=== PATIENT | female | born 1945 | race Asian ===

== ENCOUNTER 2019-02-10 11:25 | Inpatient (IN) | payer MEDICARE, OTHER ==
[~2019-02-10] VITALS: Ht 160 cm; Wt 64.0 kg
[2019-02-10 12:30] VITALS: BP 117/60; PULSE 80; RESP 18
[2019-02-10] MEDS ORDERED: METHOCARBAMOL 500 MG TAB PO PRN (12:30)
[2019-02-10] MEDS ORDERED: LACTULOSE 30ML CUP PO PRN (12:30)
[2019-02-10] MEDS ORDERED: BISACODYL 10 MG SUPP PR PRN (12:30)
[2019-02-10] MEDS ORDERED: PENDING SANTYL ORDER FOR WOUND CARE XX PRN (12:30)
[2019-02-10 12:50] VITALS: Ht 160 cm; Wt 64.0 kg
[2019-02-10] MEDS ORDERED: CALCIUM CARBONATE 1.25 GM TAB PO SCH (13:00)
--- NOTE | 2019-02-10 15:05 | CONS ---
DATE OF ADMISSION: 02/10/2019 DATE OF CONSULTATION: 02/10/2019 TYPE OF CONSULTATION: Rehabilitation post-admission physician evaluation. REHABILITATION IMPAIRMENT CATEGORY: Other orthopedic injury with severe osteoarthritis, status post right total hip arthroplasty. ACTIVE COMORBIDITIES: 1. Lumbar spinal stenosis and radiculopathy, status post epidurals. 2. Acute pain syndrome. 3. Anxiety. 4. History of breast cancer with lumpectomy. 5. Gastroesophageal reflux disease. 6. Hypotension. 7. Impairments in self-care and mobility. HISTORY OF PRESENT ILLNESS: The patient is a javier 73-year-old female with a history of lumbar radiculopathy and low back pain, breast cancer and lumpectomy, who had noted continued right groin pain despite conservative measures. It was thought that she initially the pain was secondary to the lumbar spinal stenosis. However, with further imaging the patient was noted to have severe osteoarthritis with possible avascular necrosis. The patient did undergo right total hip arthroplasty on 02/08/2019 at [facility]. Her hospital course was notable for anemia, hypotension, and significant impairments in self-care and mobility as compared to baseline. The patient has been cleared to transfer to the rehabilitation unit for comprehensive interdisciplinary rehab care. FUNCTIONAL HISTORY: Prior to recent events, she was independent in self-care tasks and mobility. Currently, patient requires minimal to moderate assist for self-care and mobility tasks. I have reviewed the preadmission screen and patient's current functional status is consistent with the preadmission screen. 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 She lives with her . She does hope to return home upon discharge. PAST MEDICAL HISTORY: 1. History of breast cancer with status post lumpectomy. 2. Osteoarthritis. 3. Anxiety. 4. Gastroesophageal reflux disease. CURRENT MEDICATIONS: 1. Tylenol p.r.n. 2. Aspirin 325 p.o. b.i.d. 3. Calcium carbonate 500 mg p.o. daily. 4. Vitamin D. 5. Colace 100 mg p.o. b.i.d. 6. Multivitamin 1 tab p.o. daily. 7. Protonix 40 mg p.o. daily. 8. Maynard p.r.n. 9. Xanax p.r.n. PHYSICAL EXAMINATION: VITAL SIGNS: She is currently afebrile with stable vital signs. HEENT: Extraocular motions are intact. Oropharynx clear. NECK: Supple. LUNGS: Clear anteriorly. CARDIAC: S1, S2. ABDOMEN: Soft, nontender, positive bowel sounds. NEUROLOGIC: She is awake and alert and oriented x4. She can follow simple 1- step commands. She demonstrates good strength in bilateral upper extremity and the left lower extremity. Dorsiflexion and plantar flexion intact on the right. PLAN: The patient has been admitted for comprehensive interdisciplinary acute rehab and is anticipated to tolerate 3 hours of daily therapy in divided doses for at least 5/7 days a week. The treatment plan will include: 1. Physical therapy to focus on bed mobility, transfers, and household ambulation with the goal of having the patient reach a modified independent level. The goal is also to have patient be able to do stair ascension and descension at a standby assist level. 2. Occupational therapy to focus on hygiene, grooming, dressing, bathing, and toileting activities with the goal of having the patient reach a standby assist level. 3. Rehabilitation nursing for carryover of therapeutic interventions, the goal of continent of bowel and bladder, and the goal of pain adequately managed on oral medications. Will begin bowel program as it has been a few days since she had a bowel movement. 4. Mysql Database Administrator evaluation. The patient has not had a significant appetite since surgery. Will have floor hand review patient preferences to encourage po intake. Will also add dietary supplement, Boost. REHABILITATION BARRIER: Hypotension. INTERVENTION FOR BARRIER: Encourage p.o. intake, abdominal binder and MILE hose for out of bed. ESTIMATED LENGTH OF STAY: 10 days. DISPOSITION GOAL: Home with family. I acknowledge that I performed a full physical examination on this patient within 24 hours of admission to the rehabilitation unit. I believe the patient is a good candidate for comprehensive interdisciplinary rehab care and is anticipated to make reasonable goals in a reasonable period of time as outlined above. Patient is highly motivated and agreeable with the treatment plan. Dictated By: ILANA FORRESTER/MEHUL Conf#: [id number] DID#: [id number] MTDD
[2019-02-10] MEDS: ACETAMINOPHEN 325 MG TAB PO PRN (19:38)
[2019-02-10 20:11] VITALS: BP 150/75; PULSE 91; RESP 16
[2019-02-10] MEDS: SENNA TAB PO SCH (21:00)
[2019-02-10] MEDS: HYDROCODONE/APAP (5/325) TAB PO PRN (22:15)
[2019-02-10] MEDS: DOCUSATE SODIUM 100 MG CAP PO SCH (22:16)
[2019-02-10] MEDS: ALPRAZOLAM 1 MG TAB PO PRN (23:28)
[2019-02-11 02:00] VITALS: BP 147/78; PULSE 79; RESP 18
[2019-02-11] MEDS: PANTOPRAZOLE (EC) 40 MG TAB PO SCH (07:21)
[2019-02-11 08:30] VITALS: BP 100/58; PULSE 96; RESP 18
--- NOTE | 2019-02-11 08:51 | PN ---
Date/Time of Note Date/Time of Note DATE: 02/11/19 TIME: 08:49 Objective Vital Signs Date Temp Pulse Resp B/P (MAP) Pulse Ox O2 O2 Flow FiO2 Time Delivery Rate 02/11/19 98.1 79 18 147/78 98 Room Air 02:00 (101) Intake and Output 02/10/19 02/10/19 02/11/19 1515:00 23:00 07:00 IntakeIntake Total 500 ml 200 ml BalanceBalance 500 ml 200 ml Exam min transfer min ambulation pulm-cta abd-soft Results/Medications Result Diagram: [birth year] Results 24 hrs Laboratory Tests Test 02/10/19 13:25 02/11/19 06:51 Urine Color YELLOW Urine Clarity CLEAR Urine pH 7.0 Urine Specific [place] 1.014 Urine Ketones NEGATIVE Urine Nitrite NEGATIVE Urine Bilirubin NEGATIVE Urine Urobilinogen NEGATIVE Urine Leukocyte Esterase NEGATIVE Urine Hemoglobin NEGATIVE Urine Glucose NEGATIVE Urine Total Protein NEGATIVE White Blood Count 12.2 H Red Blood Count 3.31 L Hemoglobin 10.2 L Hematocrit 31.3 L Mean Corpuscular Volume 94.6 Mean Corpuscular Hemoglobin 30.8 Mean Corpuscular Hemoglobin Concent 32.6 Red Cell Distribution Width 13.3 Platelet Count 161 Mean Platelet Volume 10.4 Immature Granulocytes % 0.500 H Neutrophils % 76.5 Lymphocytes % 16.4 Monocytes % 4.7 Eosinophils % 1.7 Basophils % 0.2 Nucleated Red Blood Cells % 0.0 Immature Granulocytes # 0.060 H Neutrophils # 9.3 H Lymphocytes # 2.0 Monocytes # 0.6 Eosinophils # 0.2 Basophils # 0.0 Nucleated Red Blood Cells # 0.0 Sodium Level 140 Potassium Level 4.5 Chloride Level 108 Carbon Dioxide Level 26 Anion Gap 6 Blood Urea Nitrogen 13 Creatinine 0.67 Est Glomerular Filtrat Rate mL/min Glucose Level 98 Calcium Level 8.6 Total Bilirubin 0.6 Direct Bilirubin 0.00 Indirect Bilirubin 0.6 Aspartate Amino Transf (AST/SGOT) 36 Alanine Aminotransferase (ALT/SGPT) 23 Alkaline Phosphatase 74 Total Protein 5.5 L Albumin 2.8 L Globulin 2.70 Albumin/Globulin Ratio 1.03 Medications Current Medications Docusate Sodium (Colace) 100 mg BID PO Last administered on 02/10/19at 22:16; Admin Dose 100 MG; Start 02/10/19 at 21:00 Senna (Senokot) 1 tab HS PO ; Start 02/10/19 at 21:00 Magnesium Hydroxide (Milk Of Mag) 30 ml BID PRN PO CONSTIPATION; Start 02/10/19 at 12:30 Lactulose (Enulose) 20 gm DAILY PRN PO CONSTIPATION; Start 02/10/19 at 12:30 Bisacodyl (Dulcolax Supp) 10 mg DAILY PRN [place] CONSTIPATION; Start 02/10/19 at 12:30 Acetaminophen (Tylenol Tab) 650 mg Q4H PRN PO PAIN Last administered on 02/10/19at 19:38; Admin Dose 650 MG; Start 02/10/19 at 12:30 Miscellaneous Information (Pending [facility] Order For Wound Care) This patient jane... PRN PRN XX WOUND CARE; Start 02/10/19 at 12:30 Aspirin (Ecotrin) 325 mg DAILY PO ; Start 02/11/19 at 09:00 Acetaminophen/ Hydrocodone Bitart ([place] (5/325)) 1 tab Q4H PRN PO MODERATE to sev pain 4-10 Last administered on 02/10/19at 22:15; Admin Dose 1 TAB; Start 02/10/19 at 12:30 Methocarbamol (Robaxin) 500 mg QID PRN PO muscle spasm; Start 02/10/19 at 12:30 Multivitamins Therapeutic (Theragran) 1 tab DAILY PO ; Start 02/11/19 at 09:00 Pantoprazole (Protonix Tab) 40 mg AC BREAKFAST PO Last administered on 02/11/19at 07:21; Admin Dose 40 MG; Start 02/11/19 at 07:05 Cholecalciferol (Vitamin D) 400 units DAILY PO ; Start 02/11/19 at 09:00 Alprazolam (Xanax) 2 mg HS PRN PO anxiety Last administered on 02/10/19at 23:28; Admin Dose 1 MG; Start 02/10/19 at 12:30 Calcium Carbonate (Oyster Shell Calcium) 1.25 gm DAILY PO ; Start 02/11/19 at 09:00 Assessment/Plan Additional Assessment/Plan Rehab- Other orthopedic injury with severe osteoarthritis, status post right total hip arthroplasty; Lumbar spinal stenosis and radiculopathy, status post epidurals. Patient tolerating rehab program Acute pain syndrome- continue current medications GI- results with bowel program.; h.o. GERD Anxiety- comfortable, adjusting well to interdisciplinary rehab program. Motivated for activities History of breast cancer with lumpectomy. Hypotension. ILANA LOZOYA MD Feb 11, 2019 08:51
[2019-02-11] MEDS: ASPIRIN (EC) 325 MG TAB PO SCH (08:59)
[2019-02-11] MEDS: HYDROCODONE/APAP (5/325) TAB PO PRN ×2 (08:59→23:07)
[2019-02-11] MEDS: DOCUSATE SODIUM 100 MG CAP PO SCH ×2 (09:01→21:00)
[2019-02-11] MEDS: CHOLECALCIFEROL 400 UNITS TAB PO SCH (09:01)
[2019-02-11] MEDS: CALCIUM CARBONATE 1.25 GM TAB PO SCH (09:01)
[2019-02-11] MEDS: MULTIVITAMINS THERAPEUTIC TAB PO SCH (09:01)
[2019-02-11 14:00] VITALS: BP 118/68; RESP 18
[2019-02-11] MEDS: ACETAMINOPHEN 325 MG TAB PO PRN (17:43)
[2019-02-11 20:00] VITALS: BP 124/72; PULSE 90; RESP 18
[2019-02-11] MEDS: SENNA TAB PO SCH (21:00)
[2019-02-11] MEDS: ALPRAZOLAM 1 MG TAB PO PRN (23:30)
[2019-02-12 02:00] VITALS: BP 118/69; PULSE 81; RESP 18
[2019-02-12] MEDS: ACETAMINOPHEN 325 MG TAB PO SCH ×6 (04:00→20:00)
[2019-02-12 08:05] VITALS: BP 106/65; PULSE 90; RESP 18
[2019-02-12] MEDS: PANTOPRAZOLE (EC) 40 MG TAB PO SCH (08:40)
[2019-02-12] MEDS: MULTIVITAMINS THERAPEUTIC TAB PO SCH (08:41)
[2019-02-12] MEDS: CHOLECALCIFEROL 400 UNITS TAB PO SCH (08:41)
[2019-02-12] MEDS: DOCUSATE SODIUM 100 MG CAP PO SCH ×2 (08:41→21:00)
[2019-02-12] MEDS: HYDROCODONE/APAP (5/325) TAB PO PRN ×2 (08:41→20:54)
[2019-02-12] MEDS: ASPIRIN (EC) 325 MG TAB PO SCH (08:41)
[2019-02-12] MEDS: CALCIUM CARBONATE 1.25 GM TAB PO SCH (08:41)
[2019-02-12 09:12] VITALS: BP 119/59; PULSE 85; RESP 18
[2019-02-12 14:56] VITALS: BP 107/56; PULSE 91; RESP 17
[2019-02-12 20:16] VITALS: BP 112/68; PULSE 97; RESP 19
[2019-02-12] MEDS: SENNA TAB PO SCH (21:00)
[2019-02-13] MEDS: ACETAMINOPHEN 325 MG TAB PO SCH ×6 (04:00→21:58)
[2019-02-13 07:00] VITALS: BP 126/59; PULSE 97
[2019-02-13] MEDS: CALCIUM CARBONATE 1.25 GM TAB PO SCH (08:20)
[2019-02-13] MEDS: PANTOPRAZOLE (EC) 40 MG TAB PO SCH (08:20)
[2019-02-13] MEDS: ASPIRIN (EC) 325 MG TAB PO SCH (08:20)
[2019-02-13] MEDS: MULTIVITAMINS THERAPEUTIC TAB PO SCH (08:20)
[2019-02-13] MEDS: CHOLECALCIFEROL 400 UNITS TAB PO SCH (08:21)
[2019-02-13] MEDS: DOCUSATE SODIUM 100 MG CAP PO SCH ×2 (08:21→21:00)
--- NOTE | 2019-02-13 09:27 | PN ---
Date/Time of Note Date/Time of Note DATE: 02/13/19 TIME: 09:26 Subjective Motivated Objective Vital Signs Date Temp Pulse Resp B/P (MAP) Pulse Ox O2 O2 Flow FiO2 Time Delivery Rate 02/13/19 97.9 97 126/59 96 Room Air 07:00 (81) 02/12/19 20:16 Intake and Output 02/12/19 02/12/19 02/13/19 1515:00 23:00 07:00 IntakeIntake Total 120 ml OutputOutput Total 300 ml BalanceBalance 120 ml -300 ml Exam cga transfer cga ambulation Results/Medications Result Diagram: 02/11/19 0651 02/11/19 0651 Medications Current Medications Docusate Sodium (Colace) 100 mg BID PO Last administered on 02/13/19 08:21; Admin Dose 100 MG; Start 02/10/19 at 21:00 Senna (Senokot) 1 tab HS PO ; Start 02/10/19 at 21:00 Magnesium Hydroxide (Milk Of Mag) 30 ml BID PRN PO CONSTIPATION; Start 02/10/19 at 12:30 Lactulose (Enulose) 20 gm DAILY PRN PO CONSTIPATION Last administered on 02/12/19 09:07; Admin Dose 20 GM; Start 02/10/19 at 12:30 Bisacodyl (Dulcolax Supp) 10 mg DAILY PRN [place] CONSTIPATION; Start 02/10/19 at 12:30 [facility] This patient jane... PRN PRN XX WOUND CARE; Start 02/10/19 at 12:30 Aspirin (Ecotrin) 325 mg DAILY PO Last administered on 02/13/19at 08:20; Admin Dose 325 MG; Start 02/11/19 at 09:00 Acetaminophen/ Hydrocodone Bitart ([place] (5/325)) 1 tab Q4H PRN PO MODERATE to sev pain 4-10 Last administered on 02/12/19at 20:54; Admin Dose 1 TAB; Start 02/10/19 at 12:30 Methocarbamol (Robaxin) 500 mg QID PRN PO muscle spasm; Start 02/10/19 at 12:30 Multivitamins Therapeutic (Theragran) 1 tab DAILY PO Last administered on 02/13/19 08:20; Admin Dose 1 TAB; Start 02/11/19 at 09:00 Pantoprazole (Protonix Tab) 40 mg AC BREAKFAST PO Last administered on 02/13/19 08:20; Admin Dose 40 MG; Start 02/11/19 at 07:05 Cholecalciferol (Vitamin D) 400 units DAILY PO Last administered on 02/13/19 08:21; Admin Dose 400 UNITS; Start 02/11/19 at 09:00 Alprazolam (Xanax) 2 mg HS PRN PO anxiety Last administered on 02/11/19 23:30; Admin Dose 2 MG; Start 02/10/19 at 12:30 Calcium Carbonate (Oyster Shell Calcium) 1.25 gm DAILY PO Last administered on 02/13/19 08:20; Admin Dose 1.25 GM; Start 02/11/19 at 09:00 Acetaminophen (Tylenol Tab) 650 mg Q4H PO Last administered on 02/13/19 08:21; Admin Dose 650 MG; Start 02/12/19 at 00:00 Assessment/Plan Additional Assessment/Plan Rehab- Other orthopedic injury with severe osteoarthritis, status post right total hip arthroplasty; Lumbar spinal stenosis and radiculopathy, status post epidurals. Improving with interdisciplinary approach Acute pain syndrome- continue current medications GI- continue bowel program.; h.o. GERD History of breast cancer with lumpectomy. Hypotension-resolved ILANA LOZOYA MD Feb 13, 2019 09:27
[2019-02-13] MEDS ORDERED: BACLOFEN 10 MG TAB PO PRN (11:30)
[2019-02-13] MEDS: HYDROCODONE/APAP (5/325) TAB PO PRN (19:31)
[2019-02-13 20:00] VITALS: BP 135/63; PULSE 96; RESP 18
[2019-02-13] MEDS: SENNA TAB PO SCH (21:00)
[2019-02-14] MEDS: ACETAMINOPHEN 325 MG TAB PO SCH ×6 (04:00→20:50)
[2019-02-14 07:59] VITALS: BP 132/69; PULSE 80; RESP 18
[2019-02-14] MEDS: PANTOPRAZOLE (EC) 40 MG TAB PO SCH (07:59)
[2019-02-14] MEDS: MULTIVITAMINS THERAPEUTIC TAB PO SCH (08:21)
[2019-02-14] MEDS: CALCIUM CARBONATE 1.25 GM TAB PO SCH (08:21)
[2019-02-14] MEDS: CHOLECALCIFEROL 400 UNITS TAB PO SCH (08:21)
[2019-02-14] MEDS: ASPIRIN (EC) 325 MG TAB PO SCH (08:21)
[2019-02-14] MEDS: DOCUSATE SODIUM 100 MG CAP PO SCH ×2 (08:22→20:50)
[2019-02-14] MEDS ORDERED: METHOCARBAMOL 500 MG TAB PO PRN (10:30)
--- NOTE | 2019-02-14 11:06 | PN ---
Date/Time of Note Date/Time of Note DATE: 02/14/19 TIME: 11:04 Subjective Patient reports hallucinations with baclofen Objective Vital Signs Date Temp Pulse Resp B/P (MAP) Pulse Ox O2 O2 Flow FiO2 Time Delivery Rate 02/13/19 98.9 96 18 135/63 96 Room Air 20:00 (87) Intake and Output 02/13/19 02/13/19 02/14/19 1515:00 23:00 07:00 IntakeIntake Total 300 ml 240 ml BalanceBalance 300 ml 240 ml Exam cga transfer cga ambulation Results/Medications Result Diagram: [birth year] Medications Current Medications Docusate Sodium (Colace) 100 mg BID PO Last administered on 02/13/19 08:21; Admin Dose 100 MG; Start 02/10/19 at 21:00 Senna (Senokot) 1 tab HS PO ; Start 02/10/19 at 21:00 Magnesium Hydroxide (Milk Of Mag) 30 ml BID PRN PO CONSTIPATION; Start 02/10/19 at 12:30 Lactulose (Enulose) 20 gm DAILY PRN PO CONSTIPATION Last administered on 02/12/19 09:07; Admin Dose 20 GM; Start 02/10/19 at 12:30 Bisacodyl (Dulcolax Supp) 10 mg DAILY PRN [place] CONSTIPATION; Start 02/10/19 at 12:30 Miscellaneous Information (Pending [facility] Order For Wound Care) This patient jane ... PRN PRN XX WOUND CARE; Start 02/10/19 at 12:30 Aspirin (Ecotrin) 325 mg DAILY PO Last administered on 02/14/19 08:21; Admin Dose 325 MG; Start 02/11/19 at 09:00 Acetaminophen/ Hydrocodone Bitart ([place] (5/325)) 1 tab Q4H PRN PO MODERATE to sev pain 4-10 Last administered on 02/13/19 19:31; Admin Dose 1 TAB; Start 02/10/19 at 12:30 Multivitamins Therapeutic (Theragran) 1 tab DAILY PO Last administered on 02/14/19 08:21; Admin Dose 1 TAB; Start 02/11/19 at 09:00 Pantoprazole (Protonix Tab) 40 mg AC BREAKFAST PO Last administered on 02/14/19 07:59; Admin Dose 40 MG; Start 02/11/19 at 07:05 Cholecalciferol (Vitamin D) 400 units DAILY PO Last administered on 02/14/19at 08:21; Admin Dose 400 UNITS; Start 02/11/19 at 09:00 Alprazolam (Xanax) 2 mg HS PRN PO anxiety Last administered on 02/11/19at 23:30; Admin Dose 2 MG; Start 02/10/19 at 12:30 Calcium Carbonate (Oyster Shell Calcium) 1.25 gm DAILY PO Last administered on 02/14/19at 08:21; Admin Dose 1.25 GM; Start 02/11/19 at 09:00 Acetaminophen (Tylenol Tab) 650 mg Q4H PO Last administered on 02/14/19at 07:59; Admin Dose 650 MG; Start 02/12/19 at 00:00 Methocarbamol (Robaxin) 500 mg DAILY PRN PO muscle spasms; Start 02/14/19 at 10:30 Assessment/Plan Additional Assessment/Plan Rehab- Other orthopedic injury with severe osteoarthritis, status post right total hip arthroplasty; Lumbar spinal stenosis and radiculopathy, status post epidurals. Overall steady progress with rehab activities Acute pain syndrome- stop baclofen. Tyelenol and norco for pain GI- results with bowel program.; h.o. GERD Anxiety- comfortable, adjusting well to interdisciplinary rehab program. Motivated for activities History of breast cancer with lumpectomy. Hypotension. ILANA LOZOYA MD Feb 14, 2019 11:05
[2019-02-14 14:00] VITALS: BP 124/72; PULSE 73; RESP 18
[2019-02-14 20:00] VITALS: BP 104/54; PULSE 91; RESP 18
[2019-02-14] MEDS: SENNA TAB PO SCH (20:50)
[2019-02-15] MEDS: ACETAMINOPHEN 325 MG TAB PO SCH ×6 (00:46→20:00)
[2019-02-15] MEDS: PANTOPRAZOLE (EC) 40 MG TAB PO SCH (06:34)
[2019-02-15 07:00] VITALS: BP 106/61; PULSE 92; RESP 18
[2019-02-15] MEDS: CALCIUM CARBONATE 1.25 GM TAB PO SCH (08:10)
[2019-02-15] MEDS: MULTIVITAMINS THERAPEUTIC TAB PO SCH (08:10)
[2019-02-15] MEDS: ASPIRIN (EC) 325 MG TAB PO SCH (08:10)
[2019-02-15] MEDS: CHOLECALCIFEROL 400 UNITS TAB PO SCH (08:10)
[2019-02-15] MEDS: HYDROCODONE/APAP (5/325) TAB PO PRN (08:11)
[2019-02-15] MEDS: DOCUSATE SODIUM 100 MG CAP PO SCH ×2 (09:00→21:00)
--- NOTE | 2019-02-15 11:52 | PN ---
Date/Time of Note Date/Time of Note DATE: 02/15/19 TIME: 11:51 Subjective Still with pain Objective Vital Signs Date Temp Pulse Resp B/P (MAP) Pulse Ox O2 O2 Flow FiO2 Time Delivery Rate 02/15/19 98.5 92 18 106/61 100 Room Air 07:00 (76) Intake and Output 02/14/19 02/14/19 02/15/19 1515:00 23:00 07:00 IntakeIntake Total 200 ml 200 ml 50 ml BalanceBalance 200 ml 200 ml 50 ml Exam pulm-cta abd-soft supervised 300 feet Results/Medications Result Diagram: 02/11/19 0651 02/11/19 0651 Medications Current Medications Docusate Sodium (Colace) 100 mg BID PO Last administered on 02/14/19at 20:50; Admin Dose 100 MG; Start 02/10/19 at 21:00 Senna (Senokot) 1 tab HS PO Last administered on 02/14/19 20:50; Admin Dose 1 TAB; Start 02/10/19 at 21:00 Magnesium Hydroxide (Milk Of Mag) 30 ml BID PRN PO CONSTIPATION; Start 02/10/19 at 12:30 Lactulose (Enulose) 20 gm DAILY PRN PO CONSTIPATION Last administered on 02/12/19at 09:07; Admin Dose 20 GM; Start 02/10/19 at 12:30 Bisacodyl (Dulcolax Supp) 10 mg DAILY PRN [place] CONSTIPATION; Start 02/10/19 at 12:30 Miscellaneous Information (Pending [facility] Order For Wound Care) This patient jane... PRN PRN XX WOUND CARE; Start 02/10/19 at 12:30 Aspirin (Ecotrin) 325 mg DAILY PO Last administered on 02/15/19 08:10; Admin Dose 325 MG; Start 02/11/19 at 09:00 Acetaminophen/ Hydrocodone Bitart ([place] (5/325)) 1 tab Q4H PRN PO MODERATE to sev pain 4-10 Last administered on 02/15/19at 08:11; Admin Dose 1 TAB; Start 02/10/19 at 12:30 Multivitamins Therapeutic (Theragran) 1 tab DAILY PO Last administered on 02/15/19at 08:10; Admin Dose 1 TAB; Start 02/11/19 at 09:00 Pantoprazole (Protonix Tab) 40 mg AC BREAKFAST PO Last administered on 02/15at 06:34; Admin Dose 40 MG; Start 02/11/19 at 07:05 Cholecalciferol (Vitamin D) 400 units DAILY PO Last administered on 02/15/19at 08:10; Admin Dose 400 UNITS; Start 02/11/19 at 09:00 Alprazolam (Xanax) 2 mg HS PRN PO anxiety Last administered on 02/11/19at 23:30; Admin Dose 2 MG; Start 02/10/19 at 12:30 Calcium Carbonate (Oyster Shell Calcium) 1.25 gm DAILY PO Last administered on 02/15/19at 08:10; Admin Dose 1.25 GM; Start 02/11/19 at 09:00 Acetaminophen (Tylenol Tab) 650 mg Q4H PO Last administered on 02/15/19at 08:11; Admin Dose 650 MG; Start 02/12/19 at 00:00 Methocarbamol (Robaxin) 500 mg DAILY PRN PO muscle spasms; Start 02/14/19 at 10:30 Assessment/Plan Additional Assessment/Plan Rehab- Other orthopedic injury with severe osteoarthritis, status post right total hip arthroplasty; Lumbar spinal stenosis and radiculopathy, status post epidurals. Excellent functional gains. Acute pain syndrome- adjusting pain meds GI- continue bowel program.; h.o. GERD Anxiety History of breast cancer with lumpectomy. Hypotension- resolved ILANA LOZOYA MD Feb 15, 2019 11:52
[2019-02-15] MEDS ORDERED: OXYCODONE/ACETAMINOPHEN (5/325) TAB PO PRN (12:00)
[2019-02-15] MEDS: OXYCODONE/ACETAMINOPHEN (5/325) TAB PO PRN ×3 (12:02→23:48)
[2019-02-15 14:00] VITALS: BP 122/65; PULSE 113; RESP 18
[2019-02-15 20:00] VITALS: BP 110/61; PULSE 90; RESP 18
[2019-02-15] MEDS: SENNA TAB PO SCH (21:00)
[2019-02-15 23:49] VITALS: BP 110/61; PULSE 90; RESP 18
[2019-02-16 02:00] VITALS: BP_SYST 110; BP_SYST 135; BP_DIAS 61; BP_DIAS 63; PULSE 89; PULSE 90; RESP 18
[2019-02-16] MEDS: ACETAMINOPHEN 325 MG TAB PO SCH ×6 (04:00→20:00)
[2019-02-16 07:30] VITALS: BP 121/58; PULSE 87; RESP 20
[2019-02-16] MEDS: MULTIVITAMINS THERAPEUTIC TAB PO SCH (08:58)
[2019-02-16] MEDS: DOCUSATE SODIUM 100 MG CAP PO SCH ×2 (08:58→20:18)
[2019-02-16] MEDS: CALCIUM CARBONATE 1.25 GM TAB PO SCH (08:58)
[2019-02-16] MEDS: ASPIRIN (EC) 325 MG TAB PO SCH (08:58)
[2019-02-16] MEDS: PANTOPRAZOLE (EC) 40 MG TAB PO SCH (08:58)
[2019-02-16] MEDS: CHOLECALCIFEROL 400 UNITS TAB PO SCH (08:58)
[2019-02-16 14:00] VITALS: BP 116/61; PULSE 90; RESP 18
--- NOTE | 2019-02-16 14:26 | PN ---
Date/Time of Note Date/Time of Note DATE: 02/16/19 TIME: 14:25 Subjective Ambulating with cane Objective Vital Signs Date Temp Pulse Resp B/P (MAP) Pulse Ox O2 O2 Flow FiO2 Time Delivery Rate 02/16/19 98.0 87 20 121/58 99 Room Air 07:30 (79) Intake and Output 02/15/19 02/15/19 02/16/19 1515:00 23:00 07:00 IntakeIntake Total 800 ml 1900 ml OutputOutput Total 400 ml 1200 ml BalanceBalance 400 ml 700 ml Exam incision- c/d/i OK ambulation Results/Medications Medications Current Medications Docusate Sodium (Colace) 100 mg BID PO Last administered on 02/16/19 08:58; Admin Dose 100 MG; Start 02/10/19 at 21:00 Senna (Senokot) 1 tab HS PO Last administered on 02/14/19 20:50; Admin Dose 1 TAB; Start 02/10/19 at 21:00 Magnesium Hydroxide (Milk Of Mag) 30 ml BID PRN PO CONSTIPATION; Start 02/10/19 at 12:30 Lactulose (Enulose) 20 gm DAILY PRN PO CONSTIPATION Last administered on 02/12/19 09:07; Admin Dose 20 GM; Start 02/10/19 at 12:30 Bisacodyl (Dulcolax Supp) 10 mg DAILY PRN [place] CONSTIPATION; Start 02/10/19 at 12:30 Miscellaneous Information [facility] This patient jane... PRN PRN XX WOUND CARE; Start 02/10/19 at 12:30 Aspirin (Ecotrin) 325 mg DAILY PO Last administered on 02/16/19 08:58; Admin Dose 325 MG; Start 02/11/19 at 09:00 Multivitamins Therapeutic (Theragran) 1 tab DAILY PO Last administered on 02/16/19 08:58; Admin Dose 1 TAB; Start 02/11/19 at 09:00 Pantoprazole (Protonix Tab) 40 mg AC BREAKFAST PO Last administered on 02/16/19 08:58; Admin Dose 40 MG; Start 02/11/19 at 07:05 Cholecalciferol (Vitamin D) 400 units DAILY PO Last administered on 02/16/19 08:58; Admin Dose 400 UNITS; Start 02/11/19 at 09:00 Alprazolam (Xanax) 2 mg HS PRN PO anxiety Last administered on 02/11/19at 23:30; Admin Dose 2 MG; Start 02/10/19 at 12:30 Calcium Carbonate (Oyster Shell Calcium) 1.25 gm DAILY PO Last administered on 02/16/19at 08:58; Admin Dose 1.25 GM; Start 02/11/19 at 09:00 Acetaminophen (Tylenol Tab) 650 mg Q4H PO Last administered on 02/16/19at 12:15; Admin Dose 650 MG; Start 02/12/19 at 00:00 Methocarbamol (Robaxin) 500 mg DAILY PRN PO muscle spasms; Start 02/14/19 at 10:30 Oxycodone/ Acetaminophen (Percocet (5/ 325)) 1 tab Q4H PRN PO MODERATE PAIN LEVEL 4-6 Last administered on 02/15/19at 23:48; Admin Dose 1 TAB; Start 02/15/19 at 12:00 Oxycodone/ Acetaminophen (Percocet (5/ 325)) 2 tab Q4H PRN PO SEVERE PAIN LEVEL 7-10; Start 02/15/19 at 12:00 Assessment/Plan Additional Assessment/Plan Rehab- Other orthopedic injury with severe osteoarthritis, status post right total hip arthroplasty; Lumbar spinal stenosis and radiculopathy, status post epidurals. Excellent progress, anticipate home tomorrow Acute pain syndrome- continue percocet for pain GI- continue bowel program.; h.o. GERD Anxiety History of breast cancer with lumpectomy. Hypotension- resolved ILANA LOZOYA MD Feb 16, 2019 14:26
[2019-02-16] MEDS: OXYCODONE/ACETAMINOPHEN (5/325) TAB PO PRN ×2 (16:56→21:00)
[2019-02-16] MEDS: SENNA TAB PO SCH (20:18)
[2019-02-16 20:23] VITALS: BP 118/62; PULSE 88; RESP 18
[2019-02-17 02:00] VITALS: BP 122/63; PULSE 92; RESP 18
[2019-02-17] MEDS: ACETAMINOPHEN 325 MG TAB PO SCH ×6 (04:00→20:00)
[2019-02-17 07:30] VITALS: BP 116/64; PULSE 91; RESP 18
[2019-02-17] MEDS: PANTOPRAZOLE (EC) 40 MG TAB PO SCH (08:39)
[2019-02-17] MEDS: CALCIUM CARBONATE 1.25 GM TAB PO SCH (08:57)
[2019-02-17] MEDS: MULTIVITAMINS THERAPEUTIC TAB PO SCH (08:57)
[2019-02-17] MEDS: ASPIRIN (EC) 325 MG TAB PO SCH (08:57)
[2019-02-17] MEDS: MAGNESIUM HYDROXIDE 30ML CUP PO PRN ×2 (08:57→20:07)
[2019-02-17] MEDS: CHOLECALCIFEROL 400 UNITS TAB PO SCH (08:57)
[2019-02-17] MEDS: DOCUSATE SODIUM 100 MG CAP PO SCH ×2 (09:00→20:12)
--- NOTE | 2019-02-17 12:14 | PN ---
Date/Time of Note Date/Time of Note DATE: 02/17/19 TIME: 12:13 Objective Vital Signs Date Temp Pulse Resp B/P (MAP) Pulse Ox O2 O2 Flow FiO2 Time Delivery Rate 02/17/19 98.0 91 18 116/64 99 Room Air 07:30 (81) Intake and Output 02/16/19 02/16/19 02/17/19 1515:00 23:00 07:00 IntakeIntake Total 300 ml 890 ml 750 ml BalanceBalance 300 ml 890 ml 750 ml Exam INTERDISCIPLINARY TEAM CONFERENCE Attended by PT, OT, ST, Social Work, Rehabilitation Nursing, Screener And Blender and Nurse General DutyCalender Let Off Operator Exam: Pulm- cta Abd- s BOWEL- Cont BLADDER-Cont SKIN- intact OT- DRESSING-s/IL BATHING-s TOILETING-s/IL PT- BED MOBILITY-s TRANSFERS-s AMBULATION-s 200 feet A/P- Interdisciplinary team conference held today. Please see interdisciplinary sh eet. Working toward d.c. on 02/19 with post discharge follow up of physical therapy, occupational therapy. Results/Medications Medications Current Medications Docusate Sodium (Colace) 100 mg BID PO Last administered on 02/16/19at 20:18; Admin Dose 100 MG; Start 02/10/19 at 21:00 Senna (Senokot) 1 tab HS PO Last administered on 02/16/19at 20:18; Admin Dose 1 TAB; Start 02/10/19 at 21:00 Magnesium Hydroxide (Milk Of Mag) 30 ml BID PRN PO CONSTIPATION Last administered on 02/17/19at 08:57; Admin Dose 30 ML; Start 02/10/19 at 12:30 Lactulose (Enulose) 20 gm DAILY PRN PO CONSTIPATION Last administered on 02/12/19at 09:07; Admin Dose 20 GM; Start 02/10/19 at 12:30 Bisacodyl (Dulcolax Supp) 10 mg DAILY PRN [place] CONSTIPATION; Start 02/10/19 at 12:30 Miscellaneous Information (Pending [facility] Order For Wound Care) This patient jane... PRN PRN XX WOUND CARE; Start 02/10/19 at 12:30 Aspirin (Ecotrin) 325 mg DAILY PO Last administered on 02/17/19at 08:57; Admin Dose 325 MG; Start 02/11/19 at 09:00 Multivitamins Therapeutic (Theragran) 1 tab DAILY PO Last administered on 02/17/19 08:57; Admin Dose 1 TAB; Start 02/11/19 at 09:00 Pantoprazole (Protonix Tab) 40 mg AC BREAKFAST PO Last administered on 02/17/19 08:39; Admin Dose 40 MG; Start 02/11/19 at 07:05 Cholecalciferol (Vitamin D) 400 units DAILY PO Last administered on 02/17/19 08:57; Admin Dose 400 UNITS; Start 02/11/19 at 09:00 Alprazolam (Xanax) 2 mg HS PRN PO anxiety Last administered on 02/11/19 23:30; Admin Dose 2 MG; Start 02/10/19 at 12:30 Calcium Carbonate (Oyster Shell Calcium) 1.25 gm DAILY PO Last administered on 02/17/19 08:57; Admin Dose 1.25 GM; Start 02/11/19 at 09:00 Acetaminophen (Tylenol Tab) 650 mg Q4H PO Last administered on 02/17/19 08:40; Admin Dose 650 MG; Start 02/12/19 at 00:00 Methocarbamol (Robaxin) 500 mg DAILY PRN PO muscle spasms; Start 02/14/19 at 10:30 Oxycodone/ Acetaminophen (Percocet (5/ 325)) 1 tab Q4H PRN PO MODERATE PAIN LEVEL 4-6 Last administered on 02/16/19 21:00; Admin Dose 1 TAB; Start 02/15/19 at 12:00 Oxycodone/ Acetaminophen (Percocet (5/ 325)) 2 tab Q4H PRN PO SEVERE PAIN LEVEL 7-10; Start 02/15/19 at 12:00 ILANA LOZOYA MD Feb 17, 2019 12:14
[2019-02-17 14:00] VITALS: BP 110/63; PULSE 114; RESP 20
[2019-02-17 15:30] VITALS: BP 112/60; PULSE 88; RESP 18
[2019-02-17] MEDS: OXYCODONE/ACETAMINOPHEN (5/325) TAB PO PRN (20:08)
[2019-02-17] MEDS: SENNA TAB PO SCH (20:12)
[2019-02-17] MEDS: ALPRAZOLAM 1 MG TAB PO PRN (20:58)
[2019-02-18] MEDS: ACETAMINOPHEN 325 MG TAB PO SCH ×7 (04:00→20:00)
[2019-02-18 07:30] VITALS: BP 106/56; PULSE 96; RESP 20
[2019-02-18] MEDS: PANTOPRAZOLE (EC) 40 MG TAB PO SCH (09:38)
[2019-02-18] MEDS: MULTIVITAMINS THERAPEUTIC TAB PO SCH (09:39)
[2019-02-18] MEDS: ASPIRIN (EC) 325 MG TAB PO SCH (09:39)
[2019-02-18] MEDS: CHOLECALCIFEROL 400 UNITS TAB PO SCH (09:39)
[2019-02-18] MEDS: CALCIUM CARBONATE 1.25 GM TAB PO SCH (09:39)
[2019-02-18] MEDS: DOCUSATE SODIUM 100 MG CAP PO SCH ×2 (09:39→20:45)
[2019-02-18] MEDS: OXYCODONE/ACETAMINOPHEN (5/325) TAB PO PRN ×2 (12:39→20:48)
[2019-02-18 14:00] VITALS: BP 106/58; PULSE 104; RESP 20
--- NOTE | 2019-02-18 14:51 | PN ---
Date/Time of Note Date/Time of Note DATE: 02/18/19 TIME: 14:50 Subjective Pain improved, slept better Objective Vital Signs Date Temp Pulse Resp B/P (MAP) Pulse Ox O2 O2 Flow FiO2 Time Delivery Rate 02/18/19 98.1 96 20 106/56 99 Room Air 07:30 (73) Intake and Output 02/17/19 02/17/19 02/18/19 1515:00 23:00 07:00 IntakeIntake Total 1040 ml OutputOutput Total 200 ml BalanceBalance 1040 ml -200 ml Exam pulm-cta NV transfers and ambulation Results/Medications Medications Current Medications Docusate Sodium (Colace) 100 mg BID PO Last administered on 02/18/19 09:39; Admin Dose 100 MG; Start 02/10/19 at 21:00 Senna (Senokot) 1 tab HS PO Last administered on 02/16/19 20:18; Admin Dose 1 TAB; Start 02/10/19 at 21:00 Magnesium Hydroxide (Milk Of Mag) 30 ml BID PRN PO CONSTIPATION Last administered on 02/17/19 20:07; Admin Dose 30 ML; Start 02/10/19 at 12:30 Lactulose (Enulose) 20 gm DAILY PRN PO CONSTIPATION Last administered on 02/12/19 09:07; Admin Dose 20 GM; Start 02/10/19 at 12:30 Bisacodyl (Dulcolax Supp) 10 mg DAILY PRN [place] CONSTIPATION; Start 02/10/19 at 12:30 Miscellaneous Information (Pending [facility] Order For Wound Care) This patient jane... PRN PRN XX WOUND CARE; Start 02/10/19 at 12:30 Aspirin (Ecotrin) 325 mg DAILY PO Last administered on 02/18/19 09:39; Admin Dose 325 MG; Start 02/11/19 at 09:00 Multivitamins Therapeutic (Theragran) 1 tab DAILY PO Last administered on 02/18/19 09:39; Admin Dose 1 TAB; Start 02/11/19 at 09:00 Pantoprazole (Protonix Tab) 40 mg AC BREAKFAST PO Last administered on 02/18/19 09:38; Admin Dose 40 MG; Start 02/11/19 at 07:05 Cholecalciferol (Vitamin D) 400 units DAILY PO Last administered on 02/18/19 09:39; Admin Dose 400 UNITS; Start 02/11/19 at 09:00 Alprazolam (Xanax) 2 mg HS PRN PO anxiety Last administered on 02/17/19 20:58; Admin Dose 2 MG; Start 02/10/19 at 12:30 Calcium Carbonate (Oyster Shell Calcium) 1.25 gm DAILY PO Last administered on 02/18/19 09:39; Admin Dose 1.25 GM; Start 02/11/19 at 09:00 Acetaminophen (Tylenol Tab) 650 mg Q4H PO Last administered on 02/18/19 09:38; Admin Dose 650 MG; Start 02/12/19 at 00:00 Methocarbamol (Robaxin) 500 mg DAILY PRN PO muscle spasms; Start 02/14/19 at 10:30 Oxycodone/ Acetaminophen (Percocet (5/ 325)) 1 tab Q4H PRN PO MODERATE PAIN LEVEL 4-6 Last administered on 02/18/19 12:39; Admin Dose 1 TAB; Start 02/15/19 at 12:00 Oxycodone/ Acetaminophen (Percocet (5/ 325)) 2 tab Q4H PRN PO SEVERE PAIN LEVEL 7-10; Start 02/15/19 at 12:00 Assessment/Plan Additional Assessment/Plan Rehab- Other orthopedic injury with severe osteoarthritis, status post right total hip arthroplasty; Lumbar spinal stenosis and radiculopathy, status post epidurals. Excellent progress, home in AM Acute pain syndrome- continue percocet for pain GI- continue bowel program.; h.o. GERD Anxiety History of breast cancer with lumpectomy. ILANA LOZOYA MD Feb 18, 2019 14:51
[2019-02-18 19:44] VITALS: BP 116/63; PULSE 89; RESP 18
[2019-02-18] MEDS: SENNA TAB PO SCH (20:45)
[2019-02-18] MEDS: ALPRAZOLAM 1 MG TAB PO PRN (20:48)
[2019-02-19 02:00] VITALS: BP 120/60; PULSE 92; RESP 18
[2019-02-19] MEDS: ACETAMINOPHEN 325 MG TAB PO SCH ×3 (04:00→07:55)
[2019-02-19 07:00] VITALS: BP 112/61; PULSE 91; RESP 18
[2019-02-19] MEDS: PANTOPRAZOLE (EC) 40 MG TAB PO SCH (07:54)
[2019-02-19] MEDS: ASPIRIN (EC) 325 MG TAB PO SCH (08:56)
[2019-02-19] MEDS: DOCUSATE SODIUM 100 MG CAP PO SCH (08:56)
[2019-02-19] MEDS: CHOLECALCIFEROL 400 UNITS TAB PO SCH (08:56)
[2019-02-19] MEDS: CALCIUM CARBONATE 1.25 GM TAB PO SCH (08:56)
[2019-02-19] MEDS: MULTIVITAMINS THERAPEUTIC TAB PO SCH (08:56)
[2019-02-19] MEDS: OXYCODONE/ACETAMINOPHEN (5/325) TAB PO PRN (09:01)
--- NOTE | 2019-02-19 10:05 | DS ---
DATE OF ADMISSION: 02/10/2019 DATE OF DISCHARGE: 02/19/2019 DISCHARGE DIAGNOSES: 1. Right total hip arthroplasty, weightbear as tolerated. 2. Acute pain syndrome. 3. Anemia secondary to blood loss. 4. Anxiety. 5. History of breast carcinoma lumpectomy. 6. Lumbar polyradiculitis. 7. Improvements in self care and mobility HISTORY: This patient is a 73-year-old female with history of lumbar radiculopathy who was noted to have progressive right hip pain due to avascular necrosis, refractory to conservative management who underwent a right total hip arthroplasty at [facility] on 02/08/2019. The patient with significant decline in functional levels postoperatively. Evaluated for acute rehab, deemed an appropriate candidate, meeting all CMS guidelines. HOSPITAL COURSE AND TREATMENT: 1. Right total hip arthroplasty, weightbearing as tolerated. Patient participated with therapeutic management for the rehabilitation program here at [facility] under the care, supervision, direction, daily oversight by board-certified physical medicine rehabilitation inspector for which she made fantastic gains in all therapeutic disciplines. The patient in physical therapy, improved to modified independent with all mobility skills including bed mobility, transfers, gait, gait of over 150 feet with use of a cane. She also participated in occupational therapy where she improved to modified independent with all ADL skills including bathing, dressing, hygiene, toileting. Rehab nursing played a role in patient's rehabilitation program including care of returning for mobility and ADL skills, facilitate out of bed to a chair as much as possible, maintain cardiopulmonary compliance. She was continent of bowel and bladder at the time of discharge. Patient will require narcotic analgesics for pain management. Mental status, cardiovascular status and pulmonary status remained stable with the use of opiates. The patient did reach her goal as outlined in her individualized plan of care. DISCHARGE INSTRUCTIONS: The patient is being discharged home with home health services including physical therapy, occupational therapy and nursing. DISCHARGE ACTIVITIES: The use of a front-wheel walker. DISCHARGE DIET: Regular. DISCHARGE MEDICATIONS: See medication reconciliation sheet. DISCHARGE CONDITION: Good. The patient will follow up with primary care physician and orthopedic surgeon. Dictated By: KAYDEN LEOS/MEHUL Conf#: [id number] DID#: [id number] CC: ILANA LOZOYA MD;*EndCC* MTDD
== END 2019-02-19 10:07 | disposition home health service (06) | DRG 948 ==
LOC: VRC 11:25 → UNDOADMIN 11:25 → EDSEX 11:51 → EDBD 11:51 → VRC 11:51
PROVIDERS: ADMIT Physical Medicine & Rehabilitation; ATTEND Physical Medicine & Rehabilitation
DX: G89.18 Other acute postprocedural pain (principal); D50.0 Iron deficiency anemia secondary to blood loss (chronic); F41.9 Anxiety disorder, unspecified; G62.89 Other specified polyneuropathies; Z98.890 Other specified postprocedural states; Z85.3 Personal history of malignant neoplasm of breast; K21.9 Gastro-esophageal reflux disease without esophagitis; I95.9 Hypotension, unspecified
CPT/HCPCS: 80053; 81003; 85025; 87081; 87086; 97110; 97112; 97116; 97162; 97530; 97535